=== PATIENT | male | born 1960 | race Asian ===

== ENCOUNTER 2016-09-19 22:03 | Emergency (ER) | payer OTHER ==
[~2016-09-19] VITALS: Ht 172.7 cm; Wt 81.6 kg
== END 2016-09-19 22:39 | disposition home or self-care (01) ==
LOC: ED 22:03
DX: K21.9 Gastro-esophageal reflux disease without esophagitis (principal); R11.2 Nausea with vomiting, unspecified
CPT/HCPCS: 99282

== ENCOUNTER 2018-04-23 15:01 | Outpatient (CLI) | payer OTHER | END 2018-04-23 20:43 | disposition home or self-care (01) | LOC: LABW 15:01 | DX: B35.1 Tinea unguium (principal) | CPT/HCPCS: 36415; 84450; 84460 ==

== ENCOUNTER 2018-06-01 14:56 | Outpatient (CLI) | payer OTHER | END 2018-06-01 21:04 | disposition home or self-care (01) | LOC: LABW 14:56 | DX: B35.1 Tinea unguium (principal) | CPT/HCPCS: 36415; 84450; 84460 ==

== ENCOUNTER 2019-03-15 07:19 | Day surgery (SDC) | payer OTHER ==
[2019-03-15 08:48] LABS: POTASSIUM 4.2 mmol/L (3.6-5.2)
== END 2019-03-15 11:45 | disposition home or self-care (01) ==
LOC: OR 07:19
PROVIDERS: Student in an Organized Health Care Education/Training Program
PROC: 0DBK8ZZ Excision of Ascending Colon, Via Natural or Artificial Opening Endoscopic (ICD-10-PCS; principal; 2019-03-15)
PROC: 0DBL8ZZ Excision of Transverse Colon, Via Natural or Artificial Opening Endoscopic (ICD-10-PCS; 2019-03-15)
PROC: 0DBP8ZZ Excision of Rectum, Via Natural or Artificial Opening Endoscopic (ICD-10-PCS; 2019-03-15)
DX: D12.3 Benign neoplasm of transverse colon (principal); K62.1 Rectal polyp; K92.2 Gastrointestinal hemorrhage, unspecified; K57.30 Diverticulosis of large intestine without perforation or abscess without bleeding; K64.8 Other hemorrhoids; Z12.11 Encounter for screening for malignant neoplasm of colon; R19.5 Other fecal abnormalities
CPT/HCPCS: 80053; J2001; J2250; J2405; J2704